=== PATIENT | female | born 1995 | race American Indian/Alaskan Native ===

== ENCOUNTER 2018-06-18 08:39 | Emergency (ER) | payer BC ==
[2018-06-18 08:39] VITALS: BMI 22.8
[2018-06-18 09:16] VITALS: BP 125/83; PULSE 94; RESP 18; TEMP 98.1; O2SAT 99
--- NOTE | 2018-06-18 09:26 | ED PDOC ---
Arrival/HPI - General Chief Complaint: Headache Time Seen by Provider: 06/18/18 09:17 Historian: Patient - History of Present Illness Narrative History of Present Illness (Text): 06/18/18 09:20 23 year old female, whose past medical history includes migraines, who presents to the ED complaining of a migraine x last night. Patient states she began experiencing a migraine last night and tried to sleep it off. She states this is her typical migraine headache. However, when the pt woke up this morning, she still felt the migraine. Patient states she has medication her doctor prescribed for her for migraines but she did not take any medication for the pain. Patient denies any fever, chills, chest pain, shortness of breath, nausea, vomiting, diarrhea, urinary symptoms, back pain, neck pain, dizziness, or any other complaints. Time/Duration: 24 hours Symptom Onset: Gradual Symptom Course: Unchanged Activities at Onset: Light Context: Home Past Medical History - Provider Review Nursing Documentation Reviewed: Yes - Infectious Disease Hx of Infectious Diseases: None - Reproductive Menopause: No - Neurological Hx Migraine: Yes - Psychiatric Hx Substance Use: No - Anesthesia Hx Anesthesia: No Hx Anesthesia Reactions: No Hx Malignant Hyperthermia: No Family/Social History - Physician Review Nursing Documentation Reviewed: Yes Family/Social History: Unknown Family HX Smoking Status: Never Smoked Hx Alcohol Use: No Hx Substance Use: No Allergies/Home Meds Allergies/Adverse Reactions: Allergies No Known Allergies Allergy (Verified 04/26/16 08:06) Home Medications: Home Meds Medication Instructions Recorded Confirmed RX: Promethazine [Phenergan Syrup] 04/26/16 Review of Systems - Physician Review All systems were reviewed & negative as marked: Yes - Review of Systems Constitutional: Normal Eyes: Normal ENT: Normal Respiratory: Normal. absent: SOB, Cough Cardiovascular: Normal. absent: Chest Pain Gastrointestinal: Normal. absent: Abdominal Pain, Diarrhea, Nausea, Vomiting Genitourinary Female: Normal. absent: Dysuria, Frequency Musculoskeletal: Normal. absent: Back Pain, Neck Pain Skin: Normal. absent: Rash Neurological: Headache (migraine) Endocrine: Normal Hemo/Lymphatic: Normal Psychiatric: Normal Physical Exam - Physical Exam Narrative Physical Exam (Text): 06/18/18 09:20 Gen: NAD, cooperative, well appearing, non-toxic. Head: NCAT. EYES: PERRL, EOMI, conjunctiva clear, MOUTH: moist MM, posterior pharynx without erythema or exudate, uvula midline. NECK: FROM, supple, no meningismus CV: (+) S1S2, RRR, no M/G/R LUNGS: CTA B/L, No W/R/R, good air movement Abd: Soft, NTTP, no guarding, rebound or rigidity. Neuro: AAO x 3, GCS 15, CN 2-12 intact, motor and sensory grossly intact, 5/5 muscle strength B/L UE's and LE's. ext: no cyanosis or edema Vital Signs Reviewed: Yes Vital Signs Temp Pulse Resp BP Pulse Ox 06/18/18 09:12 98.1 F 94 H 18 125/83 99 Temperature: Afebrile Blood Pressure: Normal Pulse: Regular Respiratory Rate: Normal Appearance: Positive for: Well-Appearing, Non-Toxic, Comfortable Pain Distress: None Mental Status: Positive for: Alert and Oriented X 3 Medical Decision Making ED Course and Treatment: 06/18/18 09:20 Impression: 23 year old female presents to the Emergency department complaining of a migraine x last night. Plan: -- Fluid -- Benedryl -- Toradol -- Reassess and disposition Progress Notes: Patient is refusing IV Fluids and any medication. States she wants to go home and take her prescribed medication for migraines. Pt will be d/c. - Scribe Statement The provider has reviewed the documentation as recorded by the Scribe Li Apodaca All medical record entries made by the Scribe were at my direction and personally dictated by me. I have reviewed the chart and agree that the record accurately reflects my personal performance of the history, physical exam, medical decision making, and the department course for this patient. I have also personally directed, reviewed, and agree with the discharge instructions and disposition. Disposition/Present on Arrival - Present on Arrival Any Indicators Present on Arrival: No History of DVT/PE: No History of Uncontrolled Diabetes: No Urinary Catheter: No History of Decub. Ulcer: No History Surgical Site Infection Following: None - Disposition Have Diagnosis and Disposition been Completed?: Yes Diagnosis: Migraine Disposition: HOME/ ROUTINE Disposition Time: 09:56 Patient Plan: Discharge Condition: STABLE Discharge Instructions (ExitCare): Migraine Headache (DC) Referrals: Marianne Kaur MD [Primary Care Provider] - Follow up with primary Forms: [employer] ([place])
== END 2018-06-18 10:10 | disposition home or self-care (01) ==
LOC: ED 08:39
DX: G43.909 Migraine, unspecified, not intractable, without status migrainosus (principal)